=== PATIENT | male | born 1940 | race Caucasian/White ===

== ENCOUNTER 2017-01-30 17:34 | Inpatient (IN) | payer MEDICARE ==
[~2017-01-30] VITALS: Ht 179.1 cm; Wt 82.9 kg
--- NOTE | ~2017-01-30 | WND ---
ADMIT: 01/30/2017 RM/LOC: 431 [facility] MR#: [id number] [facility]#: [id number] [address] [facility] [address] [place], [place] [address] GEORGE ARCHER [address] [place] [address] W[facility] Care Clinic SEX: M AGE: 77 : 1940 DATE OF VISIT: 02/02/2017 TIME IN: 1425 hours. TIME OUT: 1445 hours. REASON FOR VISIT: Stump care to bilateral lower extremities. HISTORY OF PRESENT ILLNESS: George is a 77-year-old male, who is transferred here from the [facility] with a urinary tract infection and sepsis. He has a history of osteomyelitis with recent amputation of his left lower extremity BKA 3 weeks ago. Wound Care has been consulted to look at his stump wound. He is from [place], [place] and is currently at the [facility] for rehab status post his left BKA. PAST MEDICAL HISTORY: Peripheral vascular disease status post right BKA in 2003 or 2004, nonsustained ventricular tachycardia, dysphagia, hypertension, history of suprapubic catheter, anemia of chronic disease, kidney disease, diabetes mellitus for 35 years, history of tobacco abuse, coronary artery disease, and COPD. ALLERGIES: He is allergic to Demerol, Darvocet, and penicillin. SOCIAL HISTORY: He smoked a pack and half of cigarettes from the time he was a young boy until 16 years ago when he stopped. He used to drink quite a bit of alcohol as well. He reports that his dad was killed in a car accident in 1952. His mom at 90. She had diabetes mellitus. REVIEW OF SYSTEMS: He denies any complaints of fever or chills. He does have some tenderness along the amputated site on the left BKA. He also has a chronic cough that where he coughed up quite a bit of sputum. PHYSICAL EXAMINATION: Assessment of the left stump reveals a well- approximated incision, which is healed across the middle with crust over it on the lateral left side of the incision 3 cm in width x 0.5 cm in length and over the right side of the incision 4.5 cm in width x 1 cm in length. The crusted areas are stable without erythema, drainage, or fluctuance. ADMIT: 01/30/2017 RM/LOC: 431 [facility] MR#: [id number] [address] [place], [place] [address] GEORGE ARCHER [address] [id number] W[facility] Care Clinic SEX: M AGE: 77 : 1940 ASSESSMENT: 1. Status post bilateral below-knee amputation left done in December 2016 and right done 4 to 5 years ago. 2. Diabetes mellitus x30 plus years. PLAN: We will continue to wash the stump left BKA stump incision with warm soapy water, rinsed, and patted dry. They will apply Kerlix and an Rito wrap and changed daily. I would like them to apply a small amount of Aloe [place] to the stump before applying the gauze. [facility] He will not need any more followup from Wound Care unless something changes with that well approximated healing stump incision. I would like to thank Dr. Johnston for allowing us to participate in his care. Tess Mendenhall APRN/ isamar JOB #: [id number] CC: Preeti Johnston, Attending Physician Preeti Johnston, Family Physician
[~2017-01-30 17:34] MED LIST: APRESOLINE-DPS50 MG PO; ASA CHILDREN'S81 MG PO; ASPIRIN EC81 MG PO; DESYREL-DPS50 MG PO; DIFLUCAN DPS100 MG PO; DIFLUCAN DPS200 MG PO; DITROPAN-DPS5 MG PO; DULERA 200/58.8 GM IH; DUONEB DPS3 ML IH; FEOSOL-DPS325 MG PO; FLOMAX DPS0.4 MG PO; LASIX DPS40 MG PO; LEVEMIR100 UNIT/1 SQ; LIPITOR DPS40 MG PO; LOPRESSOR DPS100 MG PO; LOPRESSOR DPS50 MG PO; MIRALAX PACKET17 GM PO; NEURONTIN DPS300 MG PO; OMNICEF DPS300 MG PO; PROTONIX40 MG PO; PROVENTIL2.5 MG/3 M IH; SENOKOT S1 TAB PO; SPIRIVA18 MCG IH; SYMBICORT160 MCG/6 IH; ULTRAM DPS50 MG PO; VIBRAMYCIN-DPS100 M2 PO; VITAMIN D31000 UNIT PO
--- NOTE | 2017-01-31 08:08 | NUR ---
PT IS REFUSING ALL CARES THIS MORNING. HE REFUSED LABS TO BE DRAWN, CXR, BLOOD SUGAR TO BE TAKEN. HE REFUSED VITALS TO BE TAKEN, DID OBTAIN TEMP D/T HE WAS SLEEPING THEN HE WOKE UP AND HIT MY HAND AWAY AND CALLED ME AN OBSCENE NAME. DID LISTEN TO HIS LUNGS ANTERIORLY, BOWEL SOUNDS AND HEART SOUNDS D/T HE WAS STILL ASLEEP. RESP THERAPY GOT HIS OXYGEN SATS. UNALBE TO ASSESS HIS LIGHT, STUMPS, IV'S. DID NOTIFY DR GRIFFITH. WAITING FOR [facility] TO CALL BACK TO FIND OUT WHAT HIS BASELINE IS, TO SEE WHAT HIS NORMAL BEHAVIOR IS.
--- NOTE | 2017-02-03 08:02 | HP ---
ADMIT: 01/30/2017 RM/LOC: 431 [facility] MR#: [id number] [facility]#: [id number] [address] [facility] [address] [place], [place] [address] BIANCA ARCHERCALEB Paulino [address] [place] [place] [address] History and Physical SEX: M AGE: 77 : 1940 DATE OF SERVICE: HISTORY OF PRESENT ILLNESS: Mr. Archer is a 77-year-old gentleman, who is a transfer from the [facility]. He is status post recent hospitalization with left BKA with a history of osteomyelitis. He was transferred here secondary to fever and cough. He has a past medical history of peripheral vascular disease, status post amputation bilaterally, the last one done for osteomyelitis involving his left lower leg, history of nonsustained ventricular tachycardia, dysphagia, hypertension, history of suprapubic catheter, anemia of chronic kidney disease, diabetes, coronary artery disease, and COPD. ALLERGIES: HE IS ALLERGIC TO DEMEROL, DARVOCET, AND PENICILLIN. SOCIAL HISTORY: Remote tobacco use. FAMILY HISTORY: Noncontributory. REVIEW OF SYSTEMS: He is rather disgruntled and angry and hostile at times. Does not feel like answering questions. Wants to be transferred to the [facility] in [place]. PHYSICAL EXAMINATION: HEENT: Normal. HEART: Regular rhythm. LUNGS: Diminished to auscultation. ABDOMEN: Rounded, soft, positive bowel sounds present. Suprapubic catheter in place with cloudy urine. EXTREMITIES: He has bilateral aecba-ttm-priz amputations. Dr. Maurice did do a thorough assessment of his left BKA, and there was no evidence of dehiscence of the wound, and he subsequently feels that his possible sepsis is secondary to his urine. In the emergency room, his sodium was 129, potassium 5.4, BUN and creatinine of 47 and 3.7, blood sugar 278, alkaline phosphatase 1.9. White count 18,000, hemoglobin of 8.4, and platelet count 253,000. CK 26, troponin normal. Lactic acid 1.9. INR 1.08. UA shows 1+ protein, +3 leukocytes, 1+ blood. His chest x-ray showed no acute abnormality present. MEDICATIONS: His medications are numerous, they include: 1. Acetaminophen 1 tablet p.o. p.r.n. t.i.d. 2. Albuterol and DuoNeb breathing treatments. 3. Ammonium lactate lotion. 4. Atorvastatin 40 mg daily. 5. Budesonide 160/formoterol 4.5 mcg 2 puffs b.i.d. 6. Cholecalciferol. 7. Vitamin D3, 800 units daily. 8. Diltiazem 120 mg daily. 9. Docusate sodium. 10.Ferrous sulfate 324 daily. ADMIT: 01/30/2017 RM/LOC: 431 [facility] MR#: [id number] [address] [address] CLARENCE ARCHER [address] [place] [address] History and Physical SEX: M AGE: 77 : 1940 11.Lasix 40 daily. 12.Gabapentin 300 mg every at bedtime. 13.Insulin per sliding scale t.i.d. 14.Metoprolol 50 mg 1 tablet p.o. daily. 15.Miconazole cream 2% cream topically q.i.d. 16.Mirtazapine 15 mg 1 tablet p.o. daily. 17.Oxybutynin 5 mg p.o. t.i.d. 18.Protonix 40 mg 1 tablet daily. 19.MiraLAX daily. 20.Tramadol 50 mg orally b.i.d. p.r.n. 21.Triamcinolone cream. 22.Tacrolimus topical cream. ASSESSMENT AND PLAN: Admission of an elderly white gentleman with sepsis concerns that it may be secondary to his catheter as he has a chronic indwelling suprapubic catheter. His lower extremity wound status post amputation is clean dry and intact. He has evidence of leukocytosis, anemia, hyponatremia, renal insufficiency, hyperglycemia, history of diabetes mellitus. We at this time will admit to [facility]. We will continue his home medications as appropriate. Utilize insulin sliding scale. He was started on aztreonam and vancomycin in the emergency room. Cultures were obtained as appropriate. We will continue his [facility]. He is a bit disgruntle that he has to stay here at [facility], but we will do the best we can to care for him. Preeti Johnston MD/ isamar JOB #: [id number] CC: Preeti Johnston, Attending Physician Preeti Johnston, Family Physician
--- NOTE | 2017-02-05 08:47 | ER ---
ADMIT: 01/30/2017 RM/LOC: 431 [facility] MR#: [id number] [address] [facility] [address] [place], [place] [address] CLARENCE ARCHER [address] [facility] [place] [address] Emergency Room Report SEX: M AGE: 77 : 1940 DATE: 01/30/2017 This patient was being seen by Dr. Maurice originally. ADDENDUM: This 77-year-old male presents to emergency room with weakness and fever. He is missing his legs. He feels tired and feverish. He is a care home resident at the [facility]. He is alert and oriented, but unable to walk. He has abdominal pain as well. REVIEW OF SYSTEMS: Positive for cough and fever. PAST MEDICAL HISTORY: Cardiac disease, diabetes, hypertension, COPD, hyperlipidemia, PVD, hypotension, chronic renal failure, osteoarthritis, GERD. REVIEW OF SYSTEMS: Previous admissions were reviewed, as well as the paperwork that was sent to the ER from the [facility] care home. MEDICATIONS: See T-sheet. PAST SURGICAL HISTORY: He has a suprapubic catheter and he had bilateral knee surgery x2. PHYSICAL EXAMINATION: VITAL SIGNS: Blood pressure 98/34 with a heart rate of 80, respirations 12, temp is 97.6, O2 sats 100% on room air. GENERAL: He is alert. No acute distress. NEUROLOGIC: Oriented x4. Connection is normal. No evidence of acute CVA. Cranial nerves II through XII tested and are normal. Motor and sensory normal. NECK: Supple. Nontender. HEENT: No apparent trauma. Oropharynx normal. Eyes are PERRLA. RESPIRATIONS: No distress. Breath sounds are normal. CVS: Regular in rate and rhythm. Heart sounds normal. ABDOMEN: Epigastric tenderness. SKIN: Good color and turgor. Warm and dry. EXTREMITIES: Bilateral BKA, knee amputation. LABORATORY AND X-RAY DATA: Chest x-ray normal. The EKG showed normal sinus rhythm at 78. His CBC; white count is 18.1 with a hemoglobin of 8.4, hematocrit 26.8, and platelets 293. In his chemistry, we have a sodium of 129, potassium of 5.4, BUN of 47, glucose of 278, and creatinine is 3.7, and consistently at that level. Calcium is 8.4, albumin 1.9, alkaline phosphatase 141 with an ALT of 8. His glomerular filtration is 15. His CK is 26. His lactic acid is 1.9. His INR is 1.06. Procalcitonin is 4.47. ADMIT: 01/30/2017 RM/LOC: 431 [facility] MR#: [id number] [address] [address] CLARENCE ARCHER [address] [id number] Emergency Room Report SEX: M AGE: 77 : 1940 EMERGENCY DEPARTMENT COURSE: He got started immediately by Dr. Maurice on the sepsis workup with the fluid resuscitation at 30 mL/kg an hour. CLINICAL IMPRESSION: Based on the labs, we do have urinary tract infection and sepsis secondary to urinary tract infection. Wbc's in the urine are 69 with rbc's of 18, blood 1+, leukocytes 3+, protein 1+, and glucose in the urine is 70. He was started on vancomycin, aztreonam, and of course the IV fluids mentioned. Dr. Johnston was contacted for orders as the [facility] was on diversion. She gave orders for admission. The patient notified and awaiting room placement. ALEXIA Mata / Danny Maurice MD / isamar JOB #: [id number] CC: Preeti Johnston MD, Attending Physician Preeti Johnston MD, Family Physician
[2017-02-06] MEDS ORDERED: COLACE-DPS100 MG PO (14:00)
[2017-02-06] MEDS ORDERED: MAG-OX400 MG PO (14:00)
[2017-02-06] MEDS ORDERED: CARDIZEM CD DP120 MG PO (14:00)
[2017-02-06] MEDS ORDERED: ORGAN-I NR200 MG PO (14:01)
[2017-02-06] MEDS ORDERED: REMERON DPS15 MG PO (14:01)
[2017-02-06] MEDS ORDERED: HEPARIN5000 UNITS SQ (14:01)
[2017-02-06] MEDS ORDERED: LEVEMIR100 UNIT/1 SQ (14:02)
[2017-02-06] MEDS ORDERED: NOVOLIN R,100 UNITS/ SQ (14:03)
[2017-02-06] MEDS ORDERED: MONISTAT DERM28.4 GM TP (14:03)
[2017-02-06] MEDS ORDERED: TYLENOL DPS325 MG PO (14:04)
[2017-02-06] MEDS ORDERED: MAALOX DPS30 ML PO (14:04)
[2017-02-06] MEDS ORDERED: GLUTOSE 1537.5 GM PO (14:04)
[2017-02-06] MEDS ORDERED: LEVAQUIN DPS500 MG PO (14:05)
--- NOTE | 2017-02-11 08:05 | DS ---
ADMIT: 01/30/2017 RM/LOC: 431 [facility] MR#: [id number] [facility]#: [id number] [address] [place], [place] [address] GIANNI CLARENCE Paulino [address] [place] [address] Discharge Summary SEX: M AGE: 77 : 1940 ADMISSION DATE: 01/30/2017 DISCHARGE DATE: 02/05/2017 DISCHARGE DIAGNOSES: 1. Febrile illness. 2. Status post left BKA. 3. Fever. 4. Cough. 5. Early pneumonia. 6. Renal insufficiency, stage IV. 7. Proteinuria. 8. History of nonsustained ventricular tachycardia. 9. Dysphagia. 10.Hypertension. 11.History of chronic suprapubic catheter. 12.Anemia. 13.Diabetes. 14.Coronary artery disease. 15.COPD. HISTORY OF PRESENT ILLNESS: Well documented in his H and P. LABORATORY AND RADIOGRAPHIC ASSESSMENT: On admission white count 18,000, hemoglobin 8.4, hematocrit of 26.8, his platelet count was 293,000. Discharge white count was 11.6, hemoglobin 8.1. His INR was 1.06. Urinalysis showed 3+ leukocytes, 1+ blood. Serum chemistries showed sodium 135, potassium of 4.8, BUN and creatinine 49 and 3.4. At the time of discharge, creatinine was 2.8. B12 was 546. Folic acid 7.3, ferritin 1075. His blood culture showed no growth. Urine culture showed yeast less than 1000. Chest x-ray showed no acute cardiopulmonary processed identified. EKG showed sinus rhythm. HOSPITAL COURSE: Mr. Bustamante is an elderly patient, who is currently residing at the [facility] inpatient unit for rehabilitation status post fvccz-fim-piex amputation. He has a history now of bilateral zrqgx-agq-wcti amputation secondary to peripheral vascular disease, history of known diabetes, history of coronary artery disease, COPD, chronic kidney disease. He was admitted to [facility] with concerns about sepsis with cloudy urine coming through his suprapubic catheter as well as concerns about stump and incision infection versus pneumonia. On admission, he became very hostile at times, kicking, cursing, not allowing some of his cares. We removed the dressing from his stump and there was no evidence of active ongoing infection, cultures were obtained. There were times when he did not allow us to draw any lab. His urine culture did come back with yeast and he was started on Diflucan. He had continued improvement with hydration. We did ask [employer] to see and assist in his care. Physical therapy was finally able to get him up and to sit in a chair. Wound Care did follow for his stump ADMIT: 01/30/2017 RM/LOC: 431 [facility] MR#: [id number] [address] [address] CLARENCE BUSTAMANTE [address] [place] [address] Discharge Summary SEX: M AGE: 77 : 1940 dressing. He did have pulmonary congestion and was started on EzPAP. Chest x- ray showed continued improvement, emphysema, COPD. He had subsequent improvement. his iron, ferritin, B12, and folic acid were obtained. No significant abnormalities as he was noted have a hemoglobin of 7.8. As we felt that this was all secondary to his anemia, secondary to iron deficiency, secondary to renal disease, he was given Venofer 300 mg IV x2 in the hospital setting. He was sent to return back to the [facility] on Levaquin 500 mg p.o. daily for four days. He medications were continued as appropriate. At the time of discharge, creatinine was 2.8, hemoglobin 8.1, white count of 11.6. He was discharged in stable condition. Preeti Johnston MD/ isamar JOB #: [id number] CC: Preeti Johnston MD, Attending Physician Preeti Johnston MD, Family Physician . [facility]
== END 2017-02-05 10:53 | DRG 727 ==
LOC: ER 17:34 → 4PCU 21:17
PROVIDERS: ADMIT Internal Medicine
DX: B37.49 Other urogenital candidiasis (principal); J18.9 Pneumonia, unspecified organism; N18.4 Chronic kidney disease, stage 4 (severe); E11.22 Type 2 diabetes mellitus with diabetic chronic kidney disease; J44.0 Chronic obstructive pulmonary disease with (acute) lower respiratory infection; R13.10 Dysphagia, unspecified; D63.1 Anemia in chronic kidney disease; E87.1 Hypo-osmolality and hyponatremia; D50.9 Iron deficiency anemia, unspecified; I25.10 Atherosclerotic heart disease of native coronary artery without angina pectoris; E78.5 Hyperlipidemia, unspecified; I73.9 Peripheral vascular disease, unspecified; I12.9 Hypertensive chronic kidney disease with stage 1 through stage 4 chronic kidney disease, or unspecified chronic kidney disease; M19.90 Unspecified osteoarthritis, unspecified site; K21.9 Gastro-esophageal reflux disease without esophagitis; Z89.512 Acquired absence of left leg below knee; Z89.511 Acquired absence of right leg below knee